=== PATIENT | female | born 1945 | race Caucasian/White ===

== ENCOUNTER 2016-02-05 14:15 | Outpatient (RCR) | payer MEDICARE, OTHER ==
[~2016-02-05 14:15] MED LIST: AMIODARONE200 MG PO; ASPIRIN 32325 MG/TAB PO; CALCIUM CITRATE1 TA6 PO; COZAAR 25MG25 MG/TAB PO; GLUCOSAMINE & C1 CA1 PO; LEVOFLOXACIN500 MG PO; MELOXICAM15 MG PO; MOBIC15 MG PO; MULTIPLE VITAMI1 CAP PO; NORCO 325 MG-51 TAB PO; PRADAXA 150MG150 MG PO; PRADAXA150 MG PO; TYLENOL 650MG650 M2 PO; VITAMIN C500 MG PO; [UNRECOGNIZED DRUG - CODE]; [UNRECOGNIZED DRUG - CODE] PO
== END 2016-03-24 12:24 | disposition home or self-care (01) ==
LOC: WSPT 14:15
DX: Z47.89 Encounter for other orthopedic aftercare (principal); M25.811 Other specified joint disorders, right shoulder
CPT/HCPCS: G8984-GP; G8985-GP; G8986-GP

== ENCOUNTER → 2016-05-30 | Outpatient (CLI) | payer MEDICARE, OTHER | LOC: ZCOL.LAB 14:23 | DX: Z86.14 Personal history of Methicillin resistant Staphylococcus aureus infection (principal) ==

== ENCOUNTER → 2016-07-03 | Outpatient (CLI) | payer MEDICARE, OTHER ==
[2016-07-05 15:38] LABS: HIV 1/2 Antibodies Non-Reactive; HIV-1p24 Antigen Non-Reactive
== END ==
LOC: COL.LAB 13:45
PROVIDERS: Orthopaedic Surgery
DX: Z01.818 Encounter for other preprocedural examination (principal); M17.11 Unilateral primary osteoarthritis, right knee

== ENCOUNTER 2016-08-28 09:15 | Outpatient (RCR) | payer MEDICARE, OTHER | END 2016-09-30 15:23 | disposition still patient (30) | LOC: WSPT 09:15 | DX: Z47.89 Encounter for other orthopedic aftercare (principal); M25.861 Other specified joint disorders, right knee | CPT/HCPCS: G0283-GP; G8978-GP; G8979-GP; G8980-GP ==

== ENCOUNTER 2017-01-05 14:00 | Outpatient (RCR) | payer MEDICARE, OTHER | END 2017-01-29 | LOC: WSPT | DX: M75.92 Shoulder lesion, unspecified, left shoulder (principal) | CPT/HCPCS: G0283-GP; G8984-GP; G8985-GP ==

== ENCOUNTER → 2017-02-24 | Outpatient (CLI) | payer MEDICARE, OTHER | LOC: COL.RAD 11:19 | DX: S82.831A Other fracture of upper and lower end of right fibula, initial encounter for closed fracture (principal); M79.89 Other specified soft tissue disorders; M19.071 Primary osteoarthritis, right ankle and foot; M76.821 Posterior tibial tendinitis, right leg; I70.90 Unspecified atherosclerosis; S93.421D Sprain of deltoid ligament of right ankle, subsequent encounter; M61.07 Myositis ossificans traumatica, ankle and foot ==

== ENCOUNTER 2017-04-22 09:30 | Outpatient (RCR) | payer MEDICARE, OTHER | END 2017-06-27 09:18 | disposition home or self-care (01) | LOC: WSPT 09:30 | DX: S82.402D Unspecified fracture of shaft of left fibula, subsequent encounter for closed fracture with routine healing (principal) | CPT/HCPCS: G8978-GP; G8979-GP; G8980-GP ==

== ENCOUNTER → 2018-04-05 | Outpatient (CLI) | payer MEDICARE, OTHER | LOC: COL.RAD 13:15 | DX: R31.1 Benign essential microscopic hematuria (principal) ==

== ENCOUNTER → 2020-03-06 | Outpatient (CLI) | payer MEDICARE, OTHER | LOC: COL.RAD 10:36 | DX: K21.9 Gastro-esophageal reflux disease without esophagitis (principal) ==

== ENCOUNTER 2021-06-14 10:30 | Outpatient (RCR) | payer MEDICARE, OTHER | END 2021-06-22 | disposition home or self-care (01) | LOC: WSPT | DX: R29.898 Other symptoms and signs involving the musculoskeletal system (principal) ==

== ENCOUNTER 2021-06-26 13:49 | Outpatient (RCR) | payer MEDICARE, OTHER | END 2021-07-23 | disposition home or self-care (01) | LOC: WSPT | DX: R53.1 Weakness (principal); R29.898 Other symptoms and signs involving the musculoskeletal system ==

== ENCOUNTER 2023-03-19 09:45 | Outpatient (RCR) | payer MEDICARE, OTHER | END 2023-03-25 | disposition home or self-care (01) | LOC: WSPT | DX: M19.90 Unspecified osteoarthritis, unspecified site (principal); M25.552 Pain in left hip; M76.32 Iliotibial band syndrome, left leg ==

== ENCOUNTER 2023-04-15 15:45 | Outpatient (RCR) | payer MEDICARE, OTHER | END 2023-04-23 | disposition home or self-care (01) | LOC: WSPT | DX: M76.32 Iliotibial band syndrome, left leg (principal); M19.90 Unspecified osteoarthritis, unspecified site ==

== ENCOUNTER 2023-05-19 10:30 | Outpatient (RCR) | payer MEDICARE, OTHER | END 2023-05-24 | disposition home or self-care (01) | LOC: WSPT | DX: M76.32 Iliotibial band syndrome, left leg (principal); M19.90 Unspecified osteoarthritis, unspecified site ==

== ENCOUNTER → 2023-05-19 | Outpatient (CLI) | payer SELFPAY | LOC: WSC 12:01 | DX: M19.90 Unspecified osteoarthritis, unspecified site (principal); M76.32 Iliotibial band syndrome, left leg; M25.552 Pain in left hip ==

== ENCOUNTER → 2023-06-04 | Outpatient (CLI) | payer SELFPAY | LOC: WSC 12:04 | DX: M76.32 Iliotibial band syndrome, left leg (principal); M16.12 Unilateral primary osteoarthritis, left hip ==

== ENCOUNTER 2023-08-19 14:52 | Outpatient (RCR) | payer MEDICARE, OTHER | END 2023-08-23 | LOC: WSPT | DX: M25.572 Pain in left ankle and joints of left foot (principal); Z98.890 Other specified postprocedural states ==